=== PATIENT | female | born 1950 | race African-American/Black ===

== ENCOUNTER 2024-05-13 07:44 | Inpatient (IN) | payer MEDICARE, MEDICAID ==
[~2024-05-13] VITALS: Ht 157.5 cm; Wt 83.9 kg
[~2024-05-13 07:44] MED LIST: ALEN70TA79 PO; APIX2.5T PO; CARV12.545 PO; COLC0.6T66 PO; DULO60CA64 PO; ERGO1250 PO; FURO-151 PO; IPRA3AMP9 NEB; LACT10SO7 PO; LIDO700A15 TP; MELA5TAB19 MT; OXYC-662 GT; PRED10TA PO; PREG50CA64 PO
[2024-05-13] MEDS: LACTATED RINGERS 1,000 ML IV SCH (08:42)
[2024-05-13] MEDS: LEVETIRACETAM 500MG PREMIX 100 ML IV ONE ×2 (08:42→08:52)
[2024-05-13 09:09] LABS: MEAN CORPUSCULAR HEMOGLOBIN 32.7 pg (28.0-32.0); MEAN CORPUSCULAR HGB CONC 30.7 g/dL (31.0-37.0); MEAN CORPUSCULAR VOLUME 106.4 fL (81.0-99.0); MEAN PLATELET VOLUME 9.2 fl (7.4-10.4); PLATELET 115 x1000/uL (130-400); RED BLOOD CELL COUNT 1.77 mill/uL (4.2-5.4); RED CELL DISTRIBUTION WIDTH 16.4 % (11.6-14.6)
[2024-05-13 09:25] LABS: CHLORIDE 121 mEq/L (98-107); SODIUM 151 mEq/L (136-145)
[2024-05-13 09:26] LABS: CARBON DIOXIDE 22 mEq/L (21-32)
[2024-05-13 09:27] LABS: DIFFERENTIAL COMMENT 1; HEMATOCRIT. 18.8 % (36.0-48.0); HEMOGLOBIN. 5.8 g/dL (12.0-16.0)
[2024-05-13 09:31] LABS: GLUCOSE 86 mg/dL (70-105); UREA NITROGEN BLOOD 17 mg/dL (9-23)
[2024-05-13 09:33] LABS: ACETAMINOPHEN < 2 ug/mL (10-30); ALANINE AMINOTRANSFERASE 9 IU/L (10-49); ALBUMIN 1.3 g/dL (3.2-4.8); ASPARTATE AMINOTRANSFERASE 13 IU/L (<34); BILIRUBIN TOTAL 0.3 mg/dL (0.1-1.0)
[2024-05-13 09:37] LABS: BILIRUBIN DIRECT < 0.1 mg/dL (<=3.0); CREATININE 0.3 mg/dL (0.6-1.0); PROTEIN TOTAL 2.4 g/dL (6.0-8.3)
[2024-05-13 09:38] LABS: ETHANOL BLOOD < 10 mg/dL (<10)
[2024-05-13 09:40] LABS: CALCIUM 4.2 mg/dL (8.7-10.4)
[2024-05-13 09:41] LABS: TROPONIN I HIGH SENSITIVITY 97 ng/L (3.0-34)
[2024-05-13] MEDS ORDERED: KCL 20MEQ/100ML PREMIX 100 ML IV SCH ×2 (10:45)
[2024-05-13] MEDS: KCL 20MEQ/100ML PREMIX 100 ML IV SCH ×3 (10:52→23:12)
[2024-05-13 14:15] LABS: TROPONIN I HIGH SENSITIVITY 250 ng/L (3.0-34)
[2024-05-13] MEDS ORDERED: ACETAMINOPHEN 325MG TABLET PO PRN (14:45)
[2024-05-13] MEDS ORDERED: GUAIFENESIN 200MG/10ML SUGAR FREE UDC PO PRN (14:45)
[2024-05-13] MEDS ORDERED: CLONIDINE 0.1MG TABLET PO PRN (14:45)
[2024-05-13] MEDS: PANTOPRAZOLE SODIUM 40 MG/VIAL IV SCH (15:34)
[2024-05-13] MEDS: SODIUM CHLORIDE 0.9% 1,000 ML IV SCH (15:35)
[2024-05-13 16:42] LABS: IRON 23 ug/dL (50-170)
[2024-05-13 16:45] LABS: TOTAL IRON BINDING CAPACITY 272 ug/dl (250-425)
[2024-05-13 16:48] LABS: THYROID STIMULATING HORMONE 0.97 uIU/mL (0.55-4.78)
[2024-05-13 16:51] LABS: VITAMIN B12 SERUM > 2000 pg/mL (211-911)
[2024-05-13 17:05] LABS: PHOSPHORUS 3.6 mg/dL (2.5-4.9)
[2024-05-13 20:00] VITALS: BP 124/77; PULSE 79; RESP 20; TEMP 35.8; O2SAT 98
[2024-05-13 20:20] LABS: BG BASE EXCESS 9.1 mmol/L (-2.0-3.0); BG CARBOXYHEMOGLOBIN 0.5 % (0.5-1.5); BG DEOXYHEMOGLOBIN 4.3 % (0.0-5.0); BG FRACTION INSPIRED OXYGEN 36; BG HCO3 ACT 35.5 mmol/L (21.0-28.0); BG OXYGEN SATURATION 95.7 % (94.0-98.0); BG OXYHEMOGLOBIN 95.2 % (94.0-98.0); BG PCO2 58.3 mmHg (32.0-45.0); BG PH 7.403 (7.350-7.450); BG SAMPLE SITE RIGHT RADIAL; BG TOTAL HEMOGLOBIN 11.4 g/dL (12.0-16.0); BG VENT MODE NASAL CANNULA
[2024-05-13] MEDS ORDERED: LEVETIRACETAM 500MG in NACL 100ML PREMIX IV SCH (21:00)
[2024-05-13] MEDS: MAGNESIUM 4 G PREMIX 100 ML IV NR (22:34)
[2024-05-13] MEDS: CARVEDILOL 3.125 MG TABLET PO SCH (22:46)
[2024-05-13 22:52] VITALS: BP 142/69; PULSE 60; RESP 28; TEMP 37.00296
[2024-05-13 23:10] VITALS: BP 140/70; PULSE 66; RESP 29; TEMP 36.6696
[2024-05-14] VITALS (18 sets, daily range): BP systolic 111–143; BP diastolic 64–132; PULSE 62–96; RESP 14–34; TEMP 36.16956–36.61404; O2SAT 96–99
[2024-05-14] MEDS: FUROSEMIDE 40MG/4ML VIAL IVP NR ×2 (01:56→15:28)
[2024-05-14] MEDS: LEVETIRACETAM 500MG PREMIX 100ML IV SCH (01:56)
[2024-05-14 07:32] LABS: HEMOGLOBIN. 10.9 g/dL (12.0-16.0); MEAN CORPUSCULAR HEMOGLOBIN 32.6 pg (28.0-32.0); MEAN CORPUSCULAR HGB CONC 32.2 g/dL (31.0-37.0); MEAN CORPUSCULAR VOLUME 101.5 fL (81.0-99.0); MEAN PLATELET VOLUME 10.5 fl (7.4-10.4); PLATELET 173 x1000/uL (130-400); RED BLOOD CELL COUNT 3.35 mill/uL (4.2-5.4); RED CELL DISTRIBUTION WIDTH 17.6 % (11.6-14.6); WHITE BLOOD COUNT 9.6 x1000/uL (4.5-11.0)
[2024-05-14 07:38] LABS: CARBON DIOXIDE 33 mEq/L (21-32); CHLORIDE 104 mEq/L (98-107); SODIUM 144 mEq/L (136-145)
[2024-05-14 07:40] LABS: CALCIUM 8.5 mg/dL (8.7-10.4)
[2024-05-14 07:44] LABS: CREATININE 0.8 mg/dL (0.6-1.0); GLUCOSE 86 mg/dL (70-105); UREA NITROGEN BLOOD 33 mg/dL (9-23)
[2024-05-14 07:47] LABS: PHOSPHORUS 3.2 mg/dL (2.5-4.9)
[2024-05-14 08:32] LABS: DIFFERENTIAL COMMENT 1
[2024-05-14 11:52] LABS: HEPATITIS B SURFACE ANTIGEN NEGATIVE (Negative)
[2024-05-14 12:13] LABS: HEPATITIS C AB NON REACTIVE (Neg) (Negative)
[2024-05-14] MEDS ORDERED: NALOXONE HCL 0.4MG/ML VIAL IV PRN (15:15)
[2024-05-14] MEDS: HYDROCODONE/ACETAMINOPHEN 10/325MG TABLET PO PRN (15:28)
[2024-05-14 16:51] LABS: ANISOCYTOSIS 1+; PLATELET ESTIMATE DECREASED
[2024-05-14 17:31] LABS: PLATELET ESTIMATE NORMAL
[2024-05-15] VITALS (14 sets, daily range): BP systolic 101–136; BP diastolic 66–99; PULSE 77–110; RESP 20–36; TEMP 36.2–36.8; O2SAT 93–100
[2024-05-15] MEDS: FUROSEMIDE 40MG/4ML VIAL IVP SCH (09:01)
[2024-05-15] MEDS: IPRATROPIUM/ALBUTEROL 0.5-3(2.5)MG/3ML NEB HHN SCH (14:57)
[2024-05-15] MEDS ORDERED: LORAZEPAM 2MG/ML INJ IV PRN (18:45)
[2024-05-15] MEDS: LORAZEPAM 0.5MG TABLET PO NR (21:04)
[2024-05-15] MEDS: METHYLPREDNISOLONE SOD SUCC 125MG/2ML (ACT-O-VIAL) IV SCH (21:08)
[2024-05-15] MEDS: ZOLPIDEM TARTRATE 5MG TABLET PO PRN (22:36)
[2024-05-16] VITALS (17 sets, daily range): BP systolic 98–143; BP diastolic 61–111; PULSE 61–115; RESP 13–26; TEMP 35.6–36.4; O2SAT 90–100
[2024-05-16] MEDS ORDERED: BUDESONIDE 0.5MG/2ML NEB HHN NR (01:45)
[2024-05-16 01:46] LABS: BG BASE EXCESS 3.8 mmol/L (-2.0-3.0); BG CARBOXYHEMOGLOBIN 0.8 % (0.5-1.5); BG DEOXYHEMOGLOBIN 0.8 % (0.0-5.0); BG FRACTION INSPIRED OXYGEN 32; BG HCO3 ACT 34.5 mmol/L (21.0-28.0); BG METHEMOGLOBIN 0.1 % (0.5-1.5); BG OXYGEN SATURATION 99.2 % (94.0-98.0); BG OXYHEMOGLOBIN 98.3 % (94.0-98.0); BG PCO2 82.7 mmHg (32.0-45.0); BG PH 7.238 (7.350-7.450); BG PO2 163.4 mmHg (83.0-108.0); BG TOTAL HEMOGLOBIN 15.6 g/dL (12.0-16.0); BG VENT MODE NASAL CANNULA
[2024-05-16] MEDS: ACETYLCYSTEINE 200MG/ML 20% VIAL 4ML INH SCH (02:00)
[2024-05-16] MEDS: AMIODARONE 150MG/100ML D5W 100 ML IV NR (02:17)
[2024-05-16 02:39] LABS: CHLORIDE 102 mEq/L (98-107); POTASSIUM 5.3 mEq/L (3.5-5.1); SODIUM 141 mEq/L (136-145)
[2024-05-16 02:40] LABS: CALCIUM 8.8 mg/dL (8.7-10.4); CARBON DIOXIDE 33 mEq/L (21-32)
[2024-05-16 02:45] LABS: CREATININE 1.3 mg/dL (0.6-1.0); GLUCOSE 169 mg/dL (70-105); UREA NITROGEN BLOOD 44 mg/dL (9-23)
[2024-05-16 02:47] LABS: ALANINE AMINOTRANSFERASE 17 IU/L (10-49); ALBUMIN 3.1 g/dL (3.2-4.8); ASPARTATE AMINOTRANSFERASE 19 IU/L (<34); BILIRUBIN TOTAL 0.3 mg/dL (0.1-1.0)
[2024-05-16 03:16] LABS: PROTEIN TOTAL 5.3 g/dL (6.0-8.3)
[2024-05-16 09:23] LABS: BG BASE EXCESS 6.3 mmol/L (-2.0-3.0); BG CARBOXYHEMOGLOBIN 0.5 % (0.5-1.5); BG DEOXYHEMOGLOBIN 2.8 % (0.0-5.0); BG FRACTION INSPIRED OXYGEN 40; BG HCO3 ACT 32.7 mmol/L (21.0-28.0); BG METHEMOGLOBIN 0.3 % (0.5-1.5); BG OXYGEN SATURATION 97.2 % (94.0-98.0); BG OXYHEMOGLOBIN 96.4 % (94.0-98.0); BG PCO2 55.4 mmHg (32.0-45.0); BG PH 7.389 (7.350-7.450); BG PO2 94.5 mmHg (83.0-108.0); BG SAMPLE SITE LEFT RADIAL; BG TOTAL HEMOGLOBIN 12.2 g/dL (12.0-16.0); BG VENT MODE MASK - BIPAP
[2024-05-16] MEDS: BUDESONIDE 0.5MG/2ML NEB HHN SCH (09:52)
[2024-05-16 11:15] LABS: HEMATOCRIT. 36.5 % (36.0-48.0); HEMOGLOBIN. 11.7 g/dL (12.0-16.0); MEAN CORPUSCULAR HEMOGLOBIN 32.7 pg (28.0-32.0); MEAN CORPUSCULAR HGB CONC 32.1 g/dL (31.0-37.0); MEAN CORPUSCULAR VOLUME 102.1 fL (81.0-99.0); MEAN PLATELET VOLUME 10.3 fl (7.4-10.4); PLATELET 143 x1000/uL (130-400); RED BLOOD CELL COUNT 3.58 mill/uL (4.2-5.4); RED CELL DISTRIBUTION WIDTH 17.1 % (11.6-14.6); WHITE BLOOD COUNT 8.3 x1000/uL (4.5-11.0)
[2024-05-16 11:23] LABS: DIFFERENTIAL COMMENT 1
[2024-05-16 11:27] LABS: CHLORIDE 101 mEq/L (98-107); POTASSIUM 5.2 mEq/L (3.5-5.1); SODIUM 141 mEq/L (136-145)
[2024-05-16 11:28] LABS: CALCIUM 8.7 mg/dL (8.7-10.4); CARBON DIOXIDE 33 mEq/L (21-32)
[2024-05-16 11:33] LABS: CREATININE 1.3 mg/dL (0.6-1.0); GLUCOSE 142 mg/dL (70-105); UREA NITROGEN BLOOD 48 mg/dL (9-23)
[2024-05-16 11:35] LABS: PHOSPHORUS 4.4 mg/dL (2.5-4.9)
[2024-05-16 16:40] LABS: ANISOCYTOSIS 1+; PLATELET ESTIMATE SLIGHTLY DECREASED
[2024-05-16] MEDS ORDERED: CEFTRIAXONE 1GM/50ML 50 ML IV ONE (17:45)
[2024-05-16] MEDS ORDERED: AZITHROMYCIN 250 MG in DEXT 5% WATER 250 ML IV SCH (17:45)
[2024-05-16] MEDS: LEVOFLOXACIN 250MG TABLET PO SCH (21:45)
[2024-05-17] VITALS (14 sets, daily range): BP systolic 105–167; BP diastolic 48–134; PULSE 80–139; RESP 16–37; TEMP 36.2–36.7; O2SAT 92–100
[2024-05-17 09:33] LABS: BG BASE EXCESS 5.9 mmol/L (-2.0-3.0); BG CARBOXYHEMOGLOBIN 0.5 % (0.5-1.5); BG DEOXYHEMOGLOBIN 2.8 % (0.0-5.0); BG FRACTION INSPIRED OXYGEN 40; BG HCO3 ACT 30.7 mmol/L (21.0-28.0); BG METHEMOGLOBIN 0.3 % (0.5-1.5); BG OXYGEN SATURATION 97.2 % (94.0-98.0); BG OXYHEMOGLOBIN 96.4 % (94.0-98.0); BG PCO2 45.6 mmHg (32.0-45.0); BG PH 7.446 (7.350-7.450); BG PO2 92.7 mmHg (83.0-108.0); BG SAMPLE SITE RIGHT RADIAL; BG TOTAL HEMOGLOBIN 11.5 g/dL (12.0-16.0); BG VENT MODE NASAL CANNULA
[2024-05-17] MEDS: LORAZEPAM 2MG/ML INJ IV PRN (10:24)
[2024-05-17] MEDS: DULOXETINE HCL 60MG DR CAPSULE PO SCH (10:24)
[2024-05-17] MEDS: DILTIAZEM HCL 5MG/ML 5ML VIAL IV NR (11:10)
[2024-05-17] MEDS: DILTIAZEM HCL 30MG TABLET PO SCH (11:57)
[2024-05-17 12:01] LABS: HEMATOCRIT. 35.1 % (36.0-48.0); HEMOGLOBIN. 11.4 g/dL (12.0-16.0); MEAN CORPUSCULAR HEMOGLOBIN 32.5 pg (28.0-32.0); MEAN CORPUSCULAR HGB CONC 32.5 g/dL (31.0-37.0); MEAN CORPUSCULAR VOLUME 100.1 fL (81.0-99.0); MEAN PLATELET VOLUME 9.9 fl (7.4-10.4); PLATELET 179 x1000/uL (130-400); RED CELL DISTRIBUTION WIDTH 16.3 % (11.6-14.6); WHITE BLOOD COUNT 8.8 x1000/uL (4.5-11.0)
[2024-05-17 12:06] LABS: POTASSIUM 5.2 mEq/L (3.5-5.1)
[2024-05-17 12:12] LABS: CREATININE 1.5 mg/dL (0.6-1.0)
[2024-05-17 12:23] LABS: DIFFERENTIAL COMMENT 1
[2024-05-17] MEDS: ACETAMINOPHEN 325MG TABLET PO PRN (16:30)
[2024-05-17] MEDS: DIPHENHYDRAMINE 50MG/ML VIAL IV PRN (16:30)
[2024-05-17] MEDS: DILTIAZEM HCL 30MG TABLET PO NR (17:00)
[2024-05-17] MEDS: DILTIAZEM HCL 60MG TABLET PO SCH (18:25)
[2024-05-17 23:21] LABS: PLATELET ESTIMATE NORMAL
[2024-05-18] VITALS (15 sets, daily range): BP systolic 99–162; BP diastolic 52–108; PULSE 63–79; RESP 20–33; TEMP 35.9–36.6; O2SAT 92–99
[2024-05-18 06:08] LABS: CALCIUM 9.2 mg/dL (8.7-10.4); POTASSIUM 5.4 mEq/L (3.5-5.1)
[2024-05-18 06:14] LABS: CREATININE 1.8 mg/dL (0.6-1.0)
[2024-05-18 07:05] LABS: HEMATOCRIT. 33.8 % (36.0-48.0); MEAN CORPUSCULAR HEMOGLOBIN 32.6 pg (28.0-32.0); MEAN CORPUSCULAR HGB CONC 32.5 g/dL (31.0-37.0); MEAN CORPUSCULAR VOLUME 100.2 fL (81.0-99.0); MEAN PLATELET VOLUME 10.3 fl (7.4-10.4); PLATELET 169 x1000/uL (130-400); RED BLOOD CELL COUNT 3.38 mill/uL (4.2-5.4); RED CELL DISTRIBUTION WIDTH 16.7 % (11.6-14.6); WHITE BLOOD COUNT 8.9 x1000/uL (4.5-11.0)
[2024-05-18 08:08] LABS: DIFFERENTIAL COMMENT 1
[2024-05-18 16:38] LABS: PLATELET ESTIMATE NORMAL
[2024-05-19] VITALS (15 sets, daily range): BP systolic 118–161; BP diastolic 69–95; PULSE 69–115; RESP 18–35; TEMP 36.1–36.9; O2SAT 94–100
[2024-05-19] MEDS: SODIUM ZIRCONIUM CYCLOSILICATE 10GM/PACKET PO SCH (18:18)
[2024-05-19] MEDS: METHYLPREDNISOLONE SOD SUCC 40MG/ML (ACT-O-VIAL) IV SCH (18:19)
[2024-05-20] VITALS (17 sets, daily range): BP systolic 109–141; BP diastolic 65–91; PULSE 59–75; RESP 15–34; TEMP 35.9–36.4; O2SAT 91–100
[2024-05-20] MEDS: SODIUM CHLORIDE 0.45% 1,000 ML IV SCH (05:45)
[2024-05-20 06:54] LABS: HEMATOCRIT. 33.6 % (36.0-48.0); HEMOGLOBIN. 11.1 g/dL (12.0-16.0); MEAN CORPUSCULAR HEMOGLOBIN 32.8 pg (28.0-32.0); MEAN CORPUSCULAR HGB CONC 32.9 g/dL (31.0-37.0); MEAN CORPUSCULAR VOLUME 99.7 fL (81.0-99.0); MEAN PLATELET VOLUME 9.5 fl (7.4-10.4); PLATELET 190 x1000/uL (130-400); RED BLOOD CELL COUNT 3.37 mill/uL (4.2-5.4); RED CELL DISTRIBUTION WIDTH 15.8 % (11.6-14.6); WHITE BLOOD COUNT 9.9 x1000/uL (4.5-11.0)
[2024-05-20 07:34] LABS: DIFFERENTIAL COMMENT 1
[2024-05-20 08:03] LABS: POTASSIUM 5.5 mEq/L (3.5-5.1)
[2024-05-20 08:08] LABS: CREATININE 2.2 mg/dL (0.6-1.0)
[2024-05-20] MEDS: SODIUM ZIRCONIUM CYCLOSILICATE 10GM/PACKET PO NR (14:51)
[2024-05-20] MEDS: IPRATROPIUM/ALBUTEROL 0.5-3(2.5)MG/3ML NEB HHN PRN (15:02)
[2024-05-20 23:34] LABS: CLARITY URINE CLEAR (CLEAR); COLOR URINE YELLOW (YELLOW); GLUCOSE URINE NEGATIVE (NEGATIVE); KETONES URINE NEGATIVE (NEGATIVE); LEUKOCYTE ESTERASE URINE NEGATIVE (NEGATIVE); NITRITE URINE NEGATIVE (NEGATIVE); OCCULT BLOOD URINE NEGATIVE (NEGATIVE); PROTEIN URINE 2+ (NEGATIVE); SPECIFIC GRAVITY URINE 1.013 (1.005-1.030); UROBILINOGEN URINE 0.2 E.U./dL (0.2-1.0)
[2024-05-21] VITALS (12 sets, daily range): BP systolic 103–151; BP diastolic 53–92; PULSE 68–83; RESP 16–32; TEMP 35.9–36.3; O2SAT 95–100
[2024-05-21 00:14] LABS: BACTERIA URINE NONE SEEN; RBC URINE 0-2 /hpf (0-2); SQUAMOUS EPITHELIAL CELL URINE NONE SEEN /lpf (RARE/1+); WBC URINE NONE SEEN /hpf (0-2)
[2024-05-21 10:41] LABS: HEMATOCRIT. 33.2 % (36.0-48.0); HEMOGLOBIN. 10.8 g/dL (12.0-16.0); MEAN CORPUSCULAR HEMOGLOBIN 32.7 pg (28.0-32.0); MEAN CORPUSCULAR HGB CONC 32.4 g/dL (31.0-37.0); MEAN CORPUSCULAR VOLUME 100.7 fL (81.0-99.0); MEAN PLATELET VOLUME 9.2 fl (7.4-10.4); PLATELET 201 x1000/uL (130-400); WHITE BLOOD COUNT 18.7 x1000/uL (4.5-11.0)
[2024-05-21 10:42] LABS: DIFFERENTIAL COMMENT 1
[2024-05-21 10:45] LABS: POTASSIUM 4.3 mEq/L (3.5-5.1)
[2024-05-21 10:46] LABS: CALCIUM 8.5 mg/dL (8.7-10.4)
[2024-05-21 10:51] LABS: CREATININE 1.8 mg/dL (0.6-1.0)
[2024-05-21] MEDS: ONDANSETRON HCL 4MG/2ML INJ IV PRN (16:29)
[2024-05-21 18:26] LABS: GIANT PLATELETS 1+; PLATELET ESTIMATE NORMAL
[2024-05-21] MEDS: BISACODYL 10MG SUPP PR NR ×2 (20:08→23:45)
[2024-05-22] VITALS (16 sets, daily range): BP systolic 90–147; BP diastolic 60–102; PULSE 60–86; RESP 16–25; TEMP 36–36.8; O2SAT 94–100
[2024-05-22 12:26] LABS: HEMATOCRIT. 32.4 % (36.0-48.0); HEMOGLOBIN. 10.7 g/dL (12.0-16.0); MEAN CORPUSCULAR HEMOGLOBIN 32.3 pg (28.0-32.0); MEAN PLATELET VOLUME 9.5 fl (7.4-10.4); PLATELET 210 x1000/uL (130-400); RED CELL DISTRIBUTION WIDTH 15.6 % (11.6-14.6)
[2024-05-22 12:37] LABS: POTASSIUM 4.4 mEq/L (3.5-5.1)
[2024-05-22 12:38] LABS: CALCIUM 8.6 mg/dL (8.7-10.4)
[2024-05-22] MEDS: BISACODYL 10MG SUPP PR NR (12:42)
[2024-05-22 12:43] LABS: CREATININE 1.8 mg/dL (0.6-1.0)
[2024-05-22 12:55] LABS: DIFFERENTIAL COMMENT 1
[2024-05-22 14:22] LABS: ANISOCYTOSIS 1+; PLATELET ESTIMATE NORMAL
[2024-05-22] MEDS ORDERED: SENNOSIDES/DOCUSATE SOD 8.6/50MG TABLET PO PRN (15:30)
[2024-05-22 16:43] LABS: PLATELET ESTIMATE NORMAL
[2024-05-22] MEDS: POLYETHYLENE GLYCOL 3350 (17GM) 1 DOSE PACK PO SCH (17:18)
[2024-05-22] MEDS: LORAZEPAM 0.5MG TABLET PO PRN (23:22)
[2024-05-23] VITALS (9 sets, daily range): BP systolic 101–135; BP diastolic 67–82; PULSE 67–78; RESP 12–24; TEMP 36.3–36.7; O2SAT 94–100
[2024-05-23 05:56] LABS: POTASSIUM 5.3 mEq/L (3.5-5.1)
[2024-05-23 05:57] LABS: CALCIUM 8.7 mg/dL (8.7-10.4)
[2024-05-23 06:01] LABS: CREATININE 1.8 mg/dL (0.6-1.0)
[2024-05-23 07:41] LABS: HEMATOCRIT. 35.4 % (36.0-48.0); HEMOGLOBIN. 11.3 g/dL (12.0-16.0); MEAN CORPUSCULAR HGB CONC 31.9 g/dL (31.0-37.0); MEAN CORPUSCULAR VOLUME 100.4 fL (81.0-99.0); MEAN PLATELET VOLUME 10.4 fl (7.4-10.4); PLATELET 141 x1000/uL (130-400); RED BLOOD CELL COUNT 3.52 mill/uL (4.2-5.4); RED CELL DISTRIBUTION WIDTH 15.8 % (11.6-14.6); WHITE BLOOD COUNT 24.3 x1000/uL (4.5-11.0)
[2024-05-23 07:56] LABS: DIFFERENTIAL COMMENT 1
[2024-05-23] MEDS: SODIUM ZIRCONIUM CYCLOSILICATE 10GM/PACKET PO SCH (10:14)
[2024-05-23] MEDS: METHYLPREDNISOLONE SOD SUCC 40MG/ML (ACT-O-VIAL) IV SCH (13:22)
[2024-05-23 16:19] LABS: PLATELET ESTIMATE NORMAL
[2024-05-24] VITALS (9 sets, daily range): BP systolic 97–142; BP diastolic 51–122; PULSE 68–84; RESP 14–21; TEMP 36.3–36.8; O2SAT 94–99
[2024-05-25] VITALS (14 sets, daily range): BP systolic 102–155; BP diastolic 50–126; PULSE 71–142; RESP 15–32; TEMP 36.6–36.9; O2SAT 95–99
[2024-05-25] MEDS ORDERED: LIDOCAINE HCL 1% 10 MG/ML 10ML VIAL ONE (12:37)
[2024-05-25] MEDS: ENOXAPARIN 80MG/0.8ML SYR SUBCUT SCH (13:00)
[2024-05-25] MEDS: METOPROLOL TARTRATE 5MG/5ML VIAL IV SCH (14:39)
[2024-05-25] MEDS: HYDRALAZINE 20MG/ML VIAL IV PRN (14:39)
[2024-05-25] MEDS ORDERED: NON FORMULARY MED XX ONE (18:15)
[2024-05-25] MEDS: DEXT 5%/0.45% NACL 1000ML 1,000 ML IV SCH (18:44)
[2024-05-26] VITALS (7 sets, daily range): BP systolic 96–152; BP diastolic 72–92; PULSE 90–108; RESP 18–28; TEMP 36–37.6; O2SAT 95–98
[2024-05-26] MEDS ORDERED: MORPHINE SULFATE 2 MG/ML INJ (NOT FOR IM USE) IV PRN (05:15)
[2024-05-26] MEDS ORDERED: NALOXONE HCL 0.4MG/ML VIAL IV PRN (06:15)
[2024-05-26 07:21] LABS: HEMATOCRIT. 33.7 % (36.0-48.0); HEMOGLOBIN. 11.2 g/dL (12.0-16.0); MEAN CORPUSCULAR HGB CONC 33.1 g/dL (31.0-37.0); MEAN CORPUSCULAR VOLUME 96.8 fL (81.0-99.0); MEAN PLATELET VOLUME 9.9 fl (7.4-10.4); PLATELET 203 x1000/uL (130-400); RED BLOOD CELL COUNT 3.48 mill/uL (4.2-5.4); RED CELL DISTRIBUTION WIDTH 15.8 % (11.6-14.6); WHITE BLOOD COUNT 25.1 x1000/uL (4.5-11.0)
[2024-05-26 07:27] LABS: DIFFERENTIAL COMMENT 1; POTASSIUM 4.4 mEq/L (3.5-5.1)
[2024-05-26 07:28] LABS: CALCIUM 8.8 mg/dL (8.7-10.4)
[2024-05-26 07:33] LABS: CREATININE 1.6 mg/dL (0.6-1.0)
[2024-05-26 07:35] LABS: ALBUMIN 2.9 g/dL (3.2-4.8); PREALBUMIN 20.5 mg/dl (10.0-40.0)
[2024-05-26] MEDS: DIGOXIN 500MCG/2ML AMP IV NR (14:45)
[2024-05-26] MEDS ORDERED: DIGOXIN 500MCG/2ML AMP IV PRN (16:30)
[2024-05-26] MEDS: DIGOXIN 500MCG/2ML AMP IV SCH (18:28)
[2024-05-26 21:02] LABS: PLATELET ESTIMATE NORMAL
[2024-05-27 08:00] VITALS: BP 119/59; RESP 20; TEMP 36.1; O2SAT 100
[2024-05-27] MEDS: APIXABAN 2.5 MG TABLET PO SCH (09:18)
[2024-05-27 11:32] LABS: POTASSIUM 4.4 mEq/L (3.5-5.1)
[2024-05-27 11:33] LABS: CALCIUM 8.3 mg/dL (8.7-10.4)
[2024-05-27 11:38] LABS: CREATININE 1.4 mg/dL (0.6-1.0)
[2024-05-27 11:40] LABS: DIGOXIN 1.2 ng/mL (0.8-2.0)
[2024-05-27 12:00] VITALS: BP 142/70; PULSE 86; RESP 22; TEMP 36.4; O2SAT 92
[2024-05-27 13:28] LABS: HEMATOCRIT. 35.7 % (36.0-48.0); HEMOGLOBIN. 11.1 g/dL (12.0-16.0); MEAN CORPUSCULAR HGB CONC 31.1 g/dL (31.0-37.0); MEAN CORPUSCULAR VOLUME 99.9 fL (81.0-99.0); MEAN PLATELET VOLUME 9.5 fl (7.4-10.4); PLATELET 148 x1000/uL (130-400); RED BLOOD CELL COUNT 3.57 mill/uL (4.2-5.4); RED CELL DISTRIBUTION WIDTH 16.6 % (11.6-14.6); WHITE BLOOD COUNT 21.8 x1000/uL (4.5-11.0)
[2024-05-27 13:32] LABS: DIFFERENTIAL COMMENT 1
[2024-05-27] MEDS: FUROSEMIDE 40MG TABLET PO SCH (13:35)
[2024-05-27] MEDS: DILTIAZEM HCL 30MG TABLET PO SCH (13:38)
[2024-05-27 16:00] VITALS: BP 108/65; PULSE 85; RESP 20; TEMP 36.6; O2SAT 98
[2024-05-27 17:46] VITALS: BP 108/65; PULSE 85; TEMP 97.8; O2SAT 98
[2024-05-27] MEDS ORDERED: DIGOXIN 125MCG TABLET PO SCH (18:00)
[2024-05-27 18:47] LABS: ANISOCYTOSIS 1+; PLATELET ESTIMATE NORMAL
[2024-05-27 20:00] VITALS: BP 115/64; PULSE 86; RESP 17; TEMP 36.4; O2SAT 100
[2024-05-27 22:08] VITALS: PULSE 86
== END 2024-05-27 23:35 | DRG 291 ==
LOC: ER 07:44 → 6WST 09:22 → EDBEDREQ 09:30 → EDBEDREQTM 09:30 → 5EST 05-14 00:45 → 3WST 05-15 14:55 → 5EST 05-16 04:55 → 8WST 05-25 23:55
PROVIDERS: ADMIT Internal Medicine; ATTEND Internal Medicine
PROC: 30233N0 Transfusion of Autologous Red Blood Cells into Peripheral Vein, Percutaneous Approach (ICD-10-PCS; 2024-05-13)
PROC: 5A09357 Assistance with Respiratory Ventilation, Less than 24 Consecutive Hours, Continuous Positive Airway Pressure (ICD-10-PCS; 2024-05-14)
PROC: 5A09357 Assistance with Respiratory Ventilation, Less than 24 Consecutive Hours, Continuous Positive Airway Pressure (ICD-10-PCS; 2024-05-16)
PROC: 4A00X4Z Measurement of Central Nervous Electrical Activity, External Approach (ICD-10-PCS; 2024-05-19)
PROC: 5A09357 Assistance with Respiratory Ventilation, Less than 24 Consecutive Hours, Continuous Positive Airway Pressure (ICD-10-PCS; 2024-05-22)
PROC: 5A09357 Assistance with Respiratory Ventilation, Less than 24 Consecutive Hours, Continuous Positive Airway Pressure (ICD-10-PCS; 2024-05-24)
PROC: 05HY33Z Insertion of Infusion Device into Upper Vein, Percutaneous Approach (ICD-10-PCS; principal; 2024-05-25)
PROC: B54MZZA Ultrasonography of Right Upper Extremity Veins, Guidance (ICD-10-PCS; 2024-05-25)
PROC: 5A09357 Assistance with Respiratory Ventilation, Less than 24 Consecutive Hours, Continuous Positive Airway Pressure (ICD-10-PCS; 2024-05-25)
DX: I11.0 Hypertensive heart disease with heart failure (principal); G92.8 Other toxic encephalopathy; I50.23 Acute on chronic systolic (congestive) heart failure; J96.21 Acute and chronic respiratory failure with hypoxia; L89.323 Pressure ulcer of left buttock, stage 3; L89.893 Pressure ulcer of other site, stage 3; L89.153 Pressure ulcer of sacral region, stage 3; I48.20 Chronic atrial fibrillation, unspecified; J44.1 Chronic obstructive pulmonary disease with (acute) exacerbation; E87.29 Other acidosis; N17.9 Acute kidney failure, unspecified; E66.2 Morbid (severe) obesity with alveolar hypoventilation; I82.A11 Acute embolism and thrombosis of right axillary vein; R56.9 Unspecified convulsions; D64.9 Anemia, unspecified; E83.42 Hypomagnesemia; Z99.81 Dependence on supplemental oxygen; E87.5 Hyperkalemia; K59.00 Constipation, unspecified; I08.3 Combined rheumatic disorders of mitral, aortic and tricuspid valves; L89.90 Pressure ulcer of unspecified site, unspecified stage; I27.20 Pulmonary hypertension, unspecified; R13.10 Dysphagia, unspecified; E87.8 Other disorders of electrolyte and fluid balance, not elsewhere classified; J32.9 Chronic sinusitis, unspecified; T17.990A Other foreign object in respiratory tract, part unspecified in causing asphyxiation, initial encounter; Z79.01 Long term (current) use of anticoagulants; Z68.33 Body mass index [BMI] 33.0-33.9, adult; Z86.73 Personal history of transient ischemic attack (TIA), and cerebral infarction without residual deficits; Z88.0 Allergy status to penicillin; Z88.5 Allergy status to narcotic agent; Z90.710 Acquired absence of both cervix and uterus; Z95.810 Presence of automatic (implantable) cardiac defibrillator; Z88.8 Allergy status to other drugs, medicaments and biological substances; W44.F9XA Other object of natural or organic material, entering into or through a natural orifice, initial encounter; Y93.89 Activity, other specified; Y92.89 Other specified places as the place of occurrence of the external cause; Y99.8 Other external cause status
CPT/HCPCS: 36415; 36573; 36600; 71045; 74018; 80048; 80053; 80076; 80162; 80307; 80320; 80329; 81003; 82040; 82270; 82375; 82607; 82805; 82962; 83540; 83550; 83735; 83880; 84100; 84134; 84145; 84443; 84484; 85025; 86705; 86850; 86900; 86920; 87340; 92610; 93005; 93306; 93971; 94070; 94640; 94660; 94664; 94760; 95816; 98960; 99285; A4606; A6261; C1725; J0282; J0360; J1160; J1200; J1650; J1940; J1953; J2003; J2060; J2405; J2470; J2919; J2920; J3475; J3480; J3490; J7030; J7608; J7626; P9016; G0480

== ENCOUNTER 2024-06-03 06:26 | Inpatient (IN) | payer MEDICARE, MEDICAID ==
[2024-06-03] VITALS (60 sets, daily range): BP systolic 42–118; BP diastolic 22–86; PULSE 50–109; RESP 20–35; TEMP 35.3–36.44736; O2SAT 55–100
[~2024-06-03] VITALS: Ht 175.3 cm; Wt 90.9 kg
[2024-06-03] MEDS: NOREPINEPHRINE 8MG/250ML PMX 250 ML IV STA (06:54)
[2024-06-03] MEDS: SODIUM CHLORIDE 0.9% 1,000 ML IV ONE (06:55)
[2024-06-03] MEDS: PIPERACILLIN/TAZO 3.375G/50ML 50 ML IV ONE (06:55)
[2024-06-03] MEDS ORDERED: MIDAZOLAM HCL 100 MG in DEXT 5% WATER 80 ML IV ONE (07:00)
[2024-06-03 07:57] LABS: MEAN CORPUSCULAR VOLUME 103.1 fL (81.0-99.0); MEAN PLATELET VOLUME 9.8 fl (7.4-10.4); PLATELET 121 x1000/uL (130-400); RED BLOOD CELL COUNT 1.75 mill/uL (4.2-5.4); RED CELL DISTRIBUTION WIDTH 18.1 % (11.6-14.6)
[2024-06-03 08:02] LABS: DIFFERENTIAL COMMENT 1
[2024-06-03 08:04] LABS: CHLORIDE 106 mEq/L (98-107); POTASSIUM 4.2 mEq/L (3.5-5.1); SODIUM 142 mEq/L (136-145)
[2024-06-03 08:05] LABS: HEMOGLOBIN. 5.8 g/dL (12.0-16.0)
[2024-06-03 08:06] LABS: CARBON DIOXIDE 24 mEq/L (21-32)
[2024-06-03 08:07] LABS: CALCIUM 7.1 mg/dL (8.7-10.4)
[2024-06-03 08:11] LABS: CREATININE 1.5 mg/dL (0.6-1.0)
[2024-06-03 08:12] LABS: UREA NITROGEN BLOOD 65 mg/dL (9-23)
[2024-06-03 08:13] LABS: ALANINE AMINOTRANSFERASE 12 IU/L (10-49); ALBUMIN 1.6 g/dL (3.2-4.8); ASPARTATE AMINOTRANSFERASE 16 IU/L (<34); PROTHROMBIN TIME 20.1 sec (9.6-11.0)
[2024-06-03 08:14] LABS: BILIRUBIN DIRECT 0.2 mg/dL (<=3.0); BILIRUBIN TOTAL 0.4 mg/dL (0.1-1.0); LACTIC ACID 7.4 mmol/L (0.4-2.0)
[2024-06-03 08:26] LABS: TROPONIN I HIGH SENSITIVITY 73 ng/L (3.0-34)
[2024-06-03 08:27] LABS: GLUCOSE 49 mg/dL (70-105)
[2024-06-03] MEDS ORDERED: DEXTROSE 50% WATER 50ML SYRINGE IV ONE (08:32)
[2024-06-03] MEDS: DEXTROSE 50% WATER 50ML SYRINGE IV ONE (08:33)
[2024-06-03] MEDS: ETOMIDATE 2MG/ML 10ML VIAL IV ONE (08:37)
[2024-06-03] MEDS: ROCURONIUM BROMIDE 10MG/ML VIAL 5ML IV ONE (08:38)
[2024-06-03] MEDS: FENTANYL CITRATE/PF 50MCG/ML 2ML VIAL IV ONE (08:50)
[2024-06-03 09:02] LABS: NUCLEATED RED BLOOD CELLS 17 /100 WBC
[2024-06-03 09:03] LABS: ANISOCYTOSIS 2+; PLATELET ESTIMATE SLIGHTLY DECREASED
[2024-06-03] MEDS: MIDAZOLAM 100MG/100ML PREMIX IV PRN (09:11)
[2024-06-03 09:47] LABS: BG BASE EXCESS -3.9 mmol/L (-2.0-3.0); BG CARBOXYHEMOGLOBIN 1.5 % (0.5-1.5); BG DEOXYHEMOGLOBIN 0.5 % (0.0-5.0); BG FRACTION INSPIRED OXYGEN 100; BG HCO3 ACT 22.3 mmol/L (21.0-28.0); BG METHEMOGLOBIN 0.3 % (0.5-1.5); BG OXYGEN SATURATION 99.5 % (94.0-98.0); BG OXYHEMOGLOBIN 97.7 % (94.0-98.0); BG PCO2 46.7 mmHg (32.0-45.0); BG PH 7.297 (7.350-7.450); BG PO2 213.1 mmHg (83.0-108.0); BG SAMPLE SITE LEFT BRACHIAL; BG TOTAL HEMOGLOBIN 6.9 g/dL (12.0-16.0); BG VENT MODE VENT - AC
[2024-06-03] MEDS ORDERED: NOREPINEPHRINE 8MG/250ML PMX 250 ML IV ONE (09:57)
[2024-06-03] MEDS ORDERED: PHENYLEPHRINE 100 MG in DEXT 5% WATER 240 ML IV PRN (10:30)
[2024-06-03 10:49] LABS: TROPONIN I HIGH SENSITIVITY 104 ng/L (3.0-34)
[2024-06-03] MEDS: NOREPINEPHRINE 8MG/250ML PMX 250 ML IV PRN (11:44)
[2024-06-03] MEDS: PHENYLEPHRINE 100 MG in DEXT 5% WATER 240 ML IV PRN (11:50)
[2024-06-03] MEDS: SODIUM BICARBONATE 8.4% 50MEQ/50ML SYR IV NR ×2 (11:54→14:46)
[2024-06-03] MEDS: IPRATROPIUM/ALBUTEROL 0.5-3(2.5)MG/3ML NEB HHN SCH (12:00)
[2024-06-03] MEDS: SODIUM CHLORIDE 3% FOR INH 4ML NEB INH SCH (12:00)
[2024-06-03 12:59] LABS: CLARITY URINE TURBID (CLEAR); COLOR URINE DARK YELLOW (YELLOW); GLUCOSE URINE NEGATIVE (NEGATIVE); KETONES URINE NEGATIVE (NEGATIVE); LEUKOCYTE ESTERASE URINE 3+ (NEGATIVE); NITRITE URINE NEGATIVE (NEGATIVE); OCCULT BLOOD URINE TRACE (NEGATIVE); PROTEIN URINE 2+ (NEGATIVE); SPECIFIC GRAVITY URINE 1.015 (1.005-1.030)
[2024-06-03] MEDS: DEXTROSE 50% WATER 50ML SYRINGE IV PRN (13:02)
[2024-06-03] MEDS: ACETYLCYSTEINE 200MG/ML 20% VIAL 4ML INH SCH (13:06)
[2024-06-03 13:20] LABS: WBC URINE TNTC /hpf (0-2)
[2024-06-03 13:21] LABS: BACTERIA URINE 4+; SQUAMOUS EPITHELIAL CELL URINE 2+ /lpf (RARE/1+); YEAST URINE NONE SEEN
[2024-06-03 14:41] LABS: BG BASE EXCESS -7.6 mmol/L (-2.0-3.0); BG CARBOXYHEMOGLOBIN 0.6 % (0.5-1.5); BG DEOXYHEMOGLOBIN 7.1 % (0.0-5.0); BG FRACTION INSPIRED OXYGEN 100; BG HCO3 ACT 18.5 mmol/L (21.0-28.0); BG METHEMOGLOBIN 0.3 % (0.5-1.5); BG OXYGEN SATURATION 92.8 % (94.0-98.0); BG PH 7.282 (7.350-7.450); BG PO2 73.8 mmHg (83.0-108.0); BG SAMPLE SITE LEFT BRACHIAL; BG TOTAL HEMOGLOBIN 6.5 g/dL (12.0-16.0); BG VENT MODE VENT - AC
[2024-06-03] MEDS: HYDROCORTISONE SOD SUCCINATE 100 MG/2 ML VIAL IV SCH (14:46)
[2024-06-03] MEDS: METRONIDAZOLE 500MG TABLET PO SCH (14:46)
[2024-06-03] MEDS: GUAIFENESIN 200MG/10ML SUGAR FREE UDC PO SCH (14:46)
[2024-06-03] MEDS: LEVOFLOXACIN 500MG TABLET PO SCH (14:47)
[2024-06-03] MEDS: VANCOMYCIN 1GM/200ML PMX (BAXTER) IV SCH (14:54)
[2024-06-03] MEDS: VASOPRESSIN 20 UNIT in SODIUM CHLORIDE 0.9% 99 ML IV PRN (14:54)
[2024-06-03] MEDS: EPINEPHRINE 10 MG in SODIUM CHLORIDE 0.9% 240 ML IV PRN (15:26)
[2024-06-03] MEDS: DOPAMINE 800MG PREMIX (DOUBLE) 250 ML IV PRN (17:57)
[2024-06-03] MEDS: DEXT 5%/0.45% NACL 1000ML 1,000 ML IV SCH (19:00)
[2024-06-03] MEDS ORDERED: ONDANSETRON HCL 4MG/2ML INJ IV PRN (19:00)
[2024-06-03] MEDS: AZTREONAM 1 G in DEXTROSE 5% WATER 50 ML IV SCH (19:40)
[2024-06-03] MEDS ORDERED: NOREPINEPHRINE 32 MG in DEXT 5% WATER 218 ML IV PRN (21:30)
[2024-06-03] MEDS ORDERED: EPINEPHRINE 20 MG in SODIUM CHLORIDE 0.9% 480 ML IV PRN (23:00)
[2024-06-03] MEDS ORDERED: EPINEPHRINE 10 MG in SODIUM CHLORIDE 0.9% 240 ML IV PRN (23:00)
[2024-06-03] MEDS: DEXT 5%/0.2% NACL 1,000 ML IV SCH (23:20)
[2024-06-03] MEDS: PHYTONADIONE 10 MG in DEXTROSE 5% WATER 49 ML IV NR (23:55)
[2024-06-04] VITALS: BP 45/25; PULSE 64; RESP 28; TEMP 36.3; O2SAT 97
[2024-06-04 00:11] VITALS: BP 39/29; PULSE 60; RESP 28
[2024-06-04] MEDS: SODIUM CHLORIDE 0.9% 1,000 ML IV ONE ×2 (00:11→00:12)
[2024-06-04] MEDS: SODIUM BICARBONATE 8.4% 50MEQ/50ML SYR IV NR (00:11)
[2024-06-04 00:20] LABS: HEMATOCRIT 27.9 % (36.0-48.0); HEMOGLOBIN 8.4 g/dL (12.0-16.0); MEAN CORPUSCULAR HEMOGLOBIN 32.4 pg (28.0-32.0); MEAN CORPUSCULAR VOLUME 107.9 fL (81.0-99.0); RED BLOOD CELL COUNT 2.59 mill/uL (4.2-5.4)
[2024-06-04 00:25] LABS: CHLORIDE 106 mEq/L (98-107); POTASSIUM 5.6 mEq/L (3.5-5.1); SODIUM 139 mEq/L (136-145)
[2024-06-04 00:26] LABS: CALCIUM 6.4 mg/dL (8.7-10.4)
[2024-06-04 00:31] LABS: CREATININE 1.5 mg/dL (0.6-1.0); GLUCOSE 156 mg/dL (70-105); UREA NITROGEN BLOOD 61 mg/dL (9-23)
[2024-06-04 00:32] LABS: ALANINE AMINOTRANSFERASE 24 IU/L (10-49)
[2024-06-04 00:33] LABS: ALBUMIN 1.2 g/dL (3.2-4.8); ASPARTATE AMINOTRANSFERASE 65 IU/L (<34); BILIRUBIN TOTAL 0.6 mg/dL (0.1-1.0); PROTEIN TOTAL 2.4 g/dL (6.0-8.3)
[2024-06-04 00:40] LABS: CARBON DIOXIDE < 10 mEq/L (21-32)
[2024-06-04 00:41] LABS: PLATELET 34 x1000/uL (130-400); WHITE BLOOD COUNT 1.8 x1000/uL (4.5-11.0)
[2024-06-04] MEDS ORDERED: PANTOPRAZOLE SODIUM 40 MG/VIAL IV SCH (09:00)
[2024-06-04] MEDS ORDERED: VANCOMYCIN 750MG/150ML (BAXTER) IV SCH (15:00)
== END 2024-06-04 00:27 | DRG 871 ==
LOC: ER 06:26 → CVICU 09:16 → EDBEDREQ 09:27
PROVIDERS: ADMIT Internal Medicine; ATTEND Internal Medicine
PROC: 02HV33Z Insertion of Infusion Device into Superior Vena Cava, Percutaneous Approach (ICD-10-PCS; principal; 2024-06-03)
PROC: B548ZZA Ultrasonography of Superior Vena Cava, Guidance (ICD-10-PCS; 2024-06-03)
PROC: 30233N1 Transfusion of Nonautologous Red Blood Cells into Peripheral Vein, Percutaneous Approach (ICD-10-PCS; 2024-06-03)
PROC: 5A1935Z Respiratory Ventilation, Less than 24 Consecutive Hours (ICD-10-PCS; 2024-06-03)
PROC: 0BH17EZ Insertion of Endotracheal Airway into Trachea, Via Natural or Artificial Opening (ICD-10-PCS; 2024-06-03)
PROC: 03HY32Z Insertion of Monitoring Device into Upper Artery, Percutaneous Approach (ICD-10-PCS; 2024-06-04)
PROC: 5A12012 Performance of Cardiac Output, Single, Manual (ICD-10-PCS; 2024-06-04)
DX: A41.9 Sepsis, unspecified organism (principal); D65 Disseminated intravascular coagulation [defibrination syndrome]; I50.23 Acute on chronic systolic (congestive) heart failure; R65.21 Severe sepsis with septic shock; J96.02 Acute respiratory failure with hypercapnia; J96.01 Acute respiratory failure with hypoxia; J69.0 Pneumonitis due to inhalation of food and vomit; J18.9 Pneumonia, unspecified organism; E66.2 Morbid (severe) obesity with alveolar hypoventilation; E87.4 Mixed disorder of acid-base balance; I13.0 Hypertensive heart and chronic kidney disease with heart failure and stage 1 through stage 4 chronic kidney disease, or unspecified chronic kidney disease; I48.19 Other persistent atrial fibrillation; N39.0 Urinary tract infection, site not specified; G93.40 Encephalopathy, unspecified; I46.9 Cardiac arrest, cause unspecified; D64.9 Anemia, unspecified; F41.9 Anxiety disorder, unspecified; I08.3 Combined rheumatic disorders of mitral, aortic and tricuspid valves; J44.9 Chronic obstructive pulmonary disease, unspecified; N18.9 Chronic kidney disease, unspecified; E16.2 Hypoglycemia, unspecified; R56.9 Unspecified convulsions; Z68.32 Body mass index [BMI] 32.0-32.9, adult; Z79.01 Long term (current) use of anticoagulants; Z86.73 Personal history of transient ischemic attack (TIA), and cerebral infarction without residual deficits; Z88.0 Allergy status to penicillin; Z88.5 Allergy status to narcotic agent; Z95.810 Presence of automatic (implantable) cardiac defibrillator; Z99.81 Dependence on supplemental oxygen
CPT/HCPCS: 31500; 36415; 36600; 71045; 80048; 80053; 80076; 81003; 82330; 82375; 82805; 82962; 83605; 83735; 83880; 84145; 84484; 85025; 85027; 86850; 86900; 86920; 87077; 87186; 93005; 94003; 94070; 94640; 94664; 98960; 99285; A4606; J1265; J1720; J2250; J2543; J3010; J3370; J3430; J3490; J7030; J7050; J7060; J7608; P9016